=== PATIENT | female | born 1950 | race Caucasian/White ===

== ENCOUNTER 2020-07-03 14:04 | Outpatient (REF) | payer MEDICARE, OTHER, SELFPAY | END 2020-07-03 14:05 | disposition home or self-care (01) | LOC: HO.LAB 14:04 | PROVIDERS: Visit Provider Internal Medicine | DX: Z20.828 Contact with and (suspected) exposure to other viral communicable diseases (principal) | CPT/HCPCS: U0003 ==

== ENCOUNTER 2024-05-19 16:54 | Emergency (ER) | payer MEDICARE, OTHER, SELFPAY ==
[2024-05-19 17:03] VITALS: BP 139/55; PULSE 100; RESP 16; TEMP 37.2; O2SAT 100; BMI 26.8
--- NOTE | 2024-05-19 17:03 | ED_ITS ---
HPI - Dental/Oral General Chief complaint: Dental/Oral Stated complaint: tooth pain Time Seen by Provider: 05/19/24 19:37 Source: patient Mode of arrival: ambulatory Limitations: no limitations History of Present Illness ED Provider: Dr. Nathan Saucedo HPI Narrative: 73-year-old female with a history of diabetes and hyperlipidemia who presents emergency department for evaluation of 5 days of dental pain and 3 days of right-sided facial swelling. Patient states she has a cracked tooth in the back of her right lower jaw which has been bothering her for proximally 5 days. She states that over the past 3 days she has had swelling of her right lower jaw which is gotten progressively worse. She states the pain is also gotten worse. She has had subjective fever and chills. She denied nausea, vomiting. Related Data Previous Rx's ?Medication ?Instructions ?Recorded clindamycin HCl 300 mg capsule 600 mg (2 x 300 mg) PO Q8H 7 days 05/19/24 #42 caps morphine 15 mg immediate release 15 mg PO Q8H PRN pain #10 tabs 05/19/24 tablet Allergies Allergy/AdvReac Type Severity Reaction Status Date / Time SEASONAL ALLERGIES Allergy Unknown WATERY Uncoded 05/19/24 17:04 EYES, RUNNY NOSE Review of Systems 2 Review of Systems: Yes all other systems are reviewed and are negative PMFSH Social History Social History Advance Directives: No Advance Directives Information Provided: No Do you have a plan to hurt others: No Plan Physical Exam 2 Vital Signs: Vital Signs: Last Vital Signs Temp 98.9 F 05/19/24 17:03 Pulse 100 05/19/24 17:03 Resp 16 05/19/24 17:03 BP 139/55 L 05/19/24 17:03 Pulse Ox 100 05/19/24 17:03 O2 Del Method Room Air 05/19/24 17:03 BMI result Body Mass Index 26.8 Vital signs revealed elevated heart rate of 100 otherwise unremarkable Exam: General: Awake, pleasant, cooperative, in no distress Dental: Patient has in indurated, swollen right lower jaw with no flocculence, area is tender to palpation. Mouth reveals a severely decayed molar (tooth 32). She was gingiva is tender but no obvious abscess noted. Patient has no trismus Neck: No adenopathy, supple Course Course Course Narrative: This is an RME performed by Mirtha Jenkins CNP: Additional HPI, ROS, PE not included below will be deferred to primary provider. patient is a 73-year-old female who presents to the emergency department with reports of Right lower dental pain and swelling, symptom onset 5 days ago pain and swelling beneath the jaw and into the neck. She has a history of diabetes. Exam: Difficulty visualizing dentition to the right lower mouth due to swelling of the vehicle area and inability to open the jaw due to pain. Has palpable swelling and tenderness to the submandibular region Plan: Labs, CT soft tissue neck Medical Decision Making Medical Decision Making [facility] Narrative: 73-year-old female with a history of diabetes and hyperlipidemia presents emergency department for evaluation of 5 days of right lower dental pain and 3 days of right-sided facial swelling. Vital signs were normal. Exam is consistent with dental infection/abscess most likely secondary to significant decay of tooth 32. Differential diagnosis: ?Includes but is not limited to dental caries, dental infection, dental abscess Following evaluation was ordered: Clindamycin 600 mg orally, ibuprofen 400 mg orally, morphine 15 mg orally Patient was initially treated with the following: CBC, CMP, Course: 20:09 My interpretation patient's laboratory evaluation as follows: Normocytic anemia with an H&H of 10.2 and 28.6. Normal white blood cell count be 1300. Potassium is a little high at 5.3. BUN is elevated 24. Glucose elevated 287. Patient's physical exam and findings are consistent with a dental abscess secondary to decay of tooth 32 possibly other dental caries as well. I did discuss this with the patient. The patient was started on clindamycin 600 mg every 8 hours x7 days, ibuprofen and Tylenol for pain and for pain not relieved by these medications she was prescribed morphine 15 mg every 8 hours. She was given printed and verbal instructions and advised to follow up with her dentist for re-evaluation. Admission/Observation Consideration of admission/observation: Escalation of care including admission/observation considered (Yes) Lab Data [facility] Lab Attestation statement: I reviewed the patient's lab results. 05/19/24 17:37 05/19/24 17:37 Labs: Lab Results 05/19/24 Range/Units 17:37 WBC 8.3 (4.8-10.8) X10*3/uL RBC 3.14 L (4.20-5.50) X10*6/uL Hgb 10.2 L (12.0-16.0) g/dl Hct 29.6 L (37.0-47.0) % MCV 94.3 (80.0-98.0) fL MCH 32.5 (27.0-33.0) pg MCHC 34.5 (31.0-35.0) g/dl RDW 12.0 (11.0-16.0) % Plt Count 297 (160-400) X10*3/uL MPV 10.4 (9.4-12.3) fL Immature Gran % (Auto) 0.4 (0.0-0.4) % Neut % (Auto) 73.8 H (45-73) % Lymph % (Auto) 12.7 L (20-40) % [place] % (Auto) 10.9 (2-11) % Eos % (Auto) 1.8 (0-4) % Baso % (Auto) 0.4 (0-2) % Lymph # (Auto) 1.1 L (1.2-4.9) X10*3/uL [place] # (Auto) 0.9 (0.1-1.2) X10*3/uL Eos # (Auto) 0.2 (0.0-0.4) X10*3/uL Baso # (Auto) 0.0 (0.0-0.2) X10*3/uL Abs Immat Gran (auto) 0.03 (0.00-0.03) X10*3/uL Absolute Neuts (auto) 6.1 (2.0-8.3) x10*3/uL Absolute Nucleated RBC 0.000 (0.0-0.012) X10*3/uL Nucleated RBC % (auto) 0.0 (0.0-0.2) /100WBC Sodium 139 (135-145) mmol/L Potassium 5.3 H (3.3-5.1) mmol/L Chloride 105 (96-108) mmol/L Carbon Dioxide 25 (22-29) mmol/L Anion Gap 14 (12-20) BUN 24 H (9-16) mg/dL Creatinine 1.32 (0.5-1.4) mg/dL Estim Creat Clear Calc 33.6 Estimated GFR 40 Random Glucose 287 H (60-115) mg/dL Calcium 9.5 (8.4-10.2) mg/dL Total Bilirubin 0.2 (0.0-1.0) mg/dL AST 20 (5-31) U/L ALT 18 (0-31) U/L Alkaline Phosphatase 118 H (39-117) U/L Total Protein 6.8 (6.5-8.0) g/dL Albumin 3.5 (3.5-5.0) g/dL Prescription Management I considered prescription management with: Pain Medication and Antibiotic Chronic Conditions Patient?s care impacted by: Diabetes and Other (Hyperlipidemia) Discharge Plan Discharge Clinical Impression: Dental abscess Patient Disposition: Home, Self-Care Instructions: Dental Abscess (ED) Additional Instructions: The swelling of your face is caused by an infection of your tooth in your lower jaw. Apply a heating pad on low for 15 minutes 4 to 6 times a day to the right side of your face to increase the blood flow to this area and help fight the infection. Do not use ice. Take ibuprofen 200 mg pills, 2 pills every 6 hours as needed for pain. Take Tylenol (acetaminophen) 325 mg pills, 2 pills every 6 hours as needed for pain. For pain not relieved by ibuprofen or Tylenol take morphine 15 mg pills, 1 pill every 12 hours as needed for pain. This medication will make you sleepy, do not drive or work while taking this medication. Morphine is a narcotic medication and can be addicting. If you are concerned about addiction you can ask the pharmacist for less pills or do not get this prescription filled. Take clindamycin 600 mg pills, 1 pill every 8 hours for 7 days. Follow-up with your dentist in 2 days Please return to the emergency department if your symptoms get worse or if you develop any symptoms that are concerning to you. Prescriptions: New clindamycin HCl 300 mg capsule 600 mg PO Q8H 7 Days Qty: 42 0RF morphine 15 mg tablet 15 mg PO Q8H PRN (Reason: pain) Qty: 10 0RF Rx Instructions: Partial Fill upon patient request. Print Language: Luxembourgish
[2024-05-19 17:44] LABS: MANUAL DIFF FLAG NO
[2024-05-19 17:45] LABS: Basophils Percent Auto 0.4 % (0-2); Eosinophils Absolute Auto 0.2 X10*3/uL (0.0-0.4); Eosinophils Percent Auto 1.8 % (0-4); Hematocrit 29.6 % (37.0-47.0); Hemoglobin 10.2 g/dl (12.0-16.0); Imm Gran Abs Auto 0.03 X10*3/uL (0.00-0.03); Imm Gran Pct Auto 0.4 % (0.0-0.4); Lymphocytes Absolute Auto 1.1 X10*3/uL (1.2-4.9); Lymphocytes Percent Auto 12.7 % (20-40); Mean Corpuscular HGB Conc 34.5 g/dl (31.0-35.0); Mean Corpuscular Hemoglobin 32.5 pg (27.0-33.0); Mean Corpuscular Volume 94.3 fL (80.0-98.0); Mean Platelet Volume 10.4 fL (9.4-12.3); Monocytes Absolute Auto 0.9 X10*3/uL (0.1-1.2); Monocytes Percent Auto 10.9 % (2-11); Neutrophils Absolute Auto 6.1 x10*3/uL (2.0-8.3); Neutrophils Percent Auto 73.8 % (45-73); Platelet Count 297 X10*3/uL (160-400); Red Blood Count 3.14 X10*6/uL (4.20-5.50); White Blood Count 8.3 X10*3/uL (4.8-10.8)
[2024-05-19 17:59] LABS: Alanine Aminotransferase 18 U/L (0-31); Albumin Level 3.5 g/dL (3.5-5.0); Alkaline Phosphatase 118 U/L (39-117); Anion Gap 14 (12-20); Aspartate Amino Transferase 20 U/L (5-31); Bilirubin Total 0.2 mg/dL (0.0-1.0); Blood Urea Nitrogen 24 mg/dL (9-16); Calcium 9.5 mg/dL (8.4-10.2); Carbon Dioxide 25 mmol/L (22-29); Chloride 105 mmol/L (96-108); Creatinine Clr Calc Pharmacy 33.6; Estimated Glomerular Filt Rate 40; Glucose Random 287 mg/dL (60-115); Potassium 5.3 mmol/L (3.3-5.1); Sodium 139 mmol/L (135-145); Total Protein 6.8 g/dL (6.5-8.0)
[2024-05-19] MEDS: Ibuprofen 400 MG TABLET PO (20:02)
[2024-05-19] MEDS: Morphine Sulfate Immed Release 15 MG TABLET PO (20:03)
[2024-05-19] MEDS: Clindamycin HCL 300 MG CAPSULE 600 MG PO (20:03)
[2024-05-19 20:08] VITALS: BP 132/76; PULSE 90; RESP 18; TEMP 36.6; O2SAT 98
== END 2024-05-19 20:09 | disposition home or self-care (01) ==
PROVIDERS: Nurse Practitioner Family; Emergency Provider Emergency Medicine Emergency Medical Services; PCP Internal Medicine
DX: K04.7 Periapical abscess without sinus (principal); Z79.899 Other long term (current) drug therapy
CPT/HCPCS: 36415; 80053; 85025; 99283